=== PATIENT | female | born 2000 | race Caucasian/White ===

== ENCOUNTER → 2019-10-26 | Outpatient (CLI) | payer BC ==
--- NOTE | 2019-10-26 16:56 | XR ---
EXAMINATION TYPE: XR chest 2V DATE OF EXAM: 10/26/2019 COMPARISON: NONE HISTORY: Pneumonia, cough TECHNIQUE: Frontal and lateral views of the chest are obtained. FINDINGS: There is no focal air space opacity, pleural effusion, or pneumothorax seen. The cardiac silhouette size is within normal limits. The osseous structures are intact. IMPRESSION: No acute cardiopulmonary process.
== END | disposition home or self-care (01) ==
LOC: RAD 16:05
PROVIDERS: ATTEND Family Medicine
DX: J18.9 Pneumonia, unspecified organism (principal)
CPT/HCPCS: 71046

== ENCOUNTER → 2021-07-31 | Outpatient (CLI) | payer BC ==
[2021-07-31 16:05] LABS: Basophils # (A) 0.01 X 10*3/uL (0.00-0.10); Basophils % (A) 0.3 %; Eosinophils # (A) 0.05 X 10*3/uL (0.04-0.35); Eosinophils % (A) 1.7 %; HCT 39.1 % (37.2-46.3); HGB 12.8 g/dL (12.0-15.0); Lymphocytes # (A) 0.72 X 10*3/uL (0.90-5.00); Lymphocytes % (A) 23.9 %; MCH 29.7 pg (27.0-32.0); MCHC 32.7 g/dL (32.0-37.0); MCV 90.7 fL (80.0-97.0); Monocytes # (A) 0.31 X 10*3/uL (0.20-1.00); Monocytes % (A) 10.3 %; Neutrophils # (A) 1.91 X 10*3/uL (1.80-7.70); Neutrophils % (A) 63.5 %; Platelet Count 148 X 10*3/uL (140-440); RBC 4.31 X 10*6/uL (4.10-5.20); RDW 12.3 % (11.5-14.5); WBC 3.01 X 10*3/uL (4.50-10.00)
[2021-07-31 17:06] LABS: ALT 9 U/L (8-44); AST 11 U/L (13-35); Albumin 4.6 g/dL (3.8-4.9); Albumin/Globulin Ratio 2.09 (1.60-3.17); Alkaline Phosphatase 58 U/L (41-126); Blood Urea Nitrogen 9.3 mg/dL (9.0-27.0); Calcium 8.9 mg/dL (8.7-10.3); Carbon Dioxide 20.1 mmol/L (21.6-31.8); Chloride 107 mmol/L (96-109); Globulin 2.2 g/dL (1.6-3.3); Glucose 105 mg/dL (70-110); Non-African American GFR(CKD) 129.4 (60.0-200.0); Sodium 141 mmol/L (135-145); Total Protein 6.8 g/dL (6.2-8.2)
== END | disposition home or self-care (01) ==
LOC: LABWHC1 07:26
PROVIDERS: ATTEND Nurse Practitioner Primary Care
DX: R42 Dizziness and giddiness (principal)
CPT/HCPCS: 36415; 80053; 82607; 82746; 83036; 84443; 85025; 85379

== ENCOUNTER → 2021-08-09 | Outpatient (CLI) | payer BC ==
[2021-08-09 11:32] LABS: Basophils # (A) 0.01 X 10*3/uL (0.00-0.10); Basophils % (A) 0.3 %; Eosinophils # (A) 0.03 X 10*3/uL (0.04-0.35); Eosinophils % (A) 0.8 %; HCT 38.6 % (37.2-46.3); HGB 12.4 g/dL (12.0-15.0); Lymphocytes # (A) 0.83 X 10*3/uL (0.90-5.00); Lymphocytes % (A) 23.3 %; MCH 28.7 pg (27.0-32.0); MCHC 32.1 g/dL (32.0-37.0); MCV 89.4 fL (80.0-97.0); Mean Platelet Volume 12.2 fL (9.5-12.2); Monocytes % (A) 11.2 %; Neutrophils # (A) 2.28 X 10*3/uL (1.80-7.70); Neutrophils % (A) 64.1 %; Platelet Count 161 X 10*3/uL (140-440); RBC 4.32 X 10*6/uL (4.10-5.20); RDW 12.1 % (11.5-14.5); WBC 3.56 X 10*3/uL (4.50-10.00)
[2021-08-09 12:27] LABS: Albumin 4.5 g/dL (3.8-4.9); Albumin/Globulin Ratio 2.08 (1.60-3.17); Anion Gap 10.5 mmol/L (4.00-12.00); Blood Urea Nitrogen 8.7 mg/dL (9.0-27.0); Calcium 9.1 mg/dL (8.7-10.3); Carbon Dioxide 22.8 mmol/L (21.6-31.8); Globulin 2.2 g/dL (1.6-3.3); Non-African American GFR(CKD) 133.7 (60.0-200.0); Potassium 4.2 mmol/L (3.5-5.5); Total Bilirubin 0.4 mg/dL (0.30-1.20); Total Protein 6.6 g/dL (6.2-8.2)
== END | disposition home or self-care (01) ==
LOC: LABWHC1 08:39
PROVIDERS: ATTEND Nurse Practitioner Primary Care
DX: R42 Dizziness and giddiness (principal)
CPT/HCPCS: 36415; 80053; 82607; 83036; 84443; 85025; 85379

== ENCOUNTER 2022-07-07 09:41 | Emergency (ER) | payer BC ==
[2022-07-07 09:47] VITALS: RESP 18
[2022-07-07] MEDS ORDERED: ONDANSETRON 4 MG/2 ML VIAL IVP STA (10:07)
[2022-07-07] MEDS ORDERED: FAMOTIDINE 20 MG/2 ML VIAL IV STA (10:07)
[2022-07-07] MEDS ORDERED: SODIUM CHLORIDE 0.9% 1,000 ML IV STA (10:07)
--- NOTE | 2022-07-07 10:09 | ED ---
General Adult HPI - General Chief complaint: Nausea/Vomiting/Diarrhea Stated complaint: 5 wks preg, vomiting Time Seen by Provider: 07/07/22 09:49 Source: patient, RN notes reviewed Mode of arrival: ambulatory Limitations: no limitations - History of Present Illness Initial comments: Patient is a pleasant 22-year-old female presenting to the emergency department with nausea and vomiting. Patient believes she is a proximally 5 or 6 weeks gravid. Patient has had nausea for the past 2 weeks. Patient is vomiting up to 4 times per day, throughout the day. Patient still feels somewhat nauseated at this time. Decreased oral intake recently. No abdominal or pelvic pain. No vaginal bleeding. This would be the patient's first . - Related Data Previous Rx's Medication Instructions Recorded Ondansetron Odt [Zofran Odt] 4 mg PO Q8HR PRN #10 tab 07/07/22 Allergies Allergy/AdvReac Type Severity Reaction Status Date / Time No Known Allergies Allergy Verified 07/07/22 11:36 Review of Systems ROS Statement: Those systems with pertinent positive or pertinent negative responses have been documented in the HPI. ROS Other: All systems not noted in ROS Statement are negative. Constitutional: Denies: fever Eyes: Denies: eye pain ENT: Denies: ear pain Respiratory: Denies: cough Cardiovascular: Denies: chest pain Endocrine: Denies: fatigue Gastrointestinal: Reports: as per HPI, nausea, vomiting Genitourinary: Denies: dysuria Musculoskeletal: Denies: back pain Skin: Denies: rash Neurological: Denies: weakness Past Medical History Past Medical History: No Reported History History of Any Multi-Drug Resistant Organisms: None Reported Past Surgical History: No Surgical Hx Reported Past Psychological History: No Psychological Hx Reported Smoking Status: Never smoker Past Alcohol Use History: Occasional Past Drug Use History: None Reported General Exam Limitations: no limitations General appearance: alert, in no apparent distress Head exam: Present: normocephalic Eye exam: Present: normal appearance Neck exam: Present: normal inspection Respiratory exam: Present: normal lung sounds bilaterally Cardiovascular Exam: Present: regular rate, normal rhythm GI/Abdominal exam: Present: soft. Absent: distended, tenderness Extremities exam: Present: normal inspection Neurological exam: Present: alert Psychiatric exam: Present: normal affect, normal mood Skin exam: Present: normal color Course Vital Signs 07/07/22 07/07/22 09:44 12:03 Temperature 98.2 F 97.8 F Pulse Rate 113 H 76 Respiratory 18 18 Rate Blood Pressure 108/70 112/71 O2 Sat by Pulse 99 100 Oximetry Medical Decision Making - Medical Decision Making Patient reevaluated and feeling much better. Patient updated on results and need for follow-up. - Lab Data Result diagrams: 07/07/22 10:21 07/07/22 10:21 Lab Results 07/07/22 07/07/22 07/07/22 Range/Units 10:21 10:21 10:21 WBC 7.2 (3.8-10.6) k/uL RBC 5.03 (3.80-5.40) m/uL Hgb 14.8 (11.4-16.0) gm/dL Hct 43.0 (34.0-46.0) % MCV 85.5 (80.0-100.0) fL MCH 29.4 (25.0-35.0) pg MCHC 34.3 (31.0-37.0) g/dL RDW 12.4 (11.5-15.5) % Plt Count 177 (150-450) k/uL MPV 9.2 Neutrophils % 84 % Lymphocytes % 8 % Monocytes % 5 % Eosinophils % 1 % Basophils % 0 % Neutrophils # 6.1 (1.3-7.7) k/uL Lymphocytes # 0.6 L (1.0-4.8) k/uL Monocytes # 0.4 (0-1.0) k/uL Eosinophils # 0.1 (0-0.7) k/uL Basophils # 0.0 (0-0.2) k/uL Sodium 138 (137-145) mmol/L Potassium 3.6 (3.5-5.1) mmol/L Chloride 97 L (98-107) mmol/L Carbon Dioxide 25 (22-30) mmol/L Anion Gap 16 mmol/L BUN 11 (7-17) mg/dL Creatinine 0.58 (0.52-1.04) mg/dL Est GFR (CKD-EPI)AfAm >90 (>60 ml/min/1.73 sqM) Est GFR (CKD-EPI)NonAf >90 (>60 ml/min/1.73 sqM) Glucose 101 H (74-99) mg/dL Calcium 9.3 (8.4-10.2) mg/dL Total Bilirubin 0.9 (0.2-1.3) mg/dL AST 19 (14-36) U/L ALT 19 (4-34) U/L Alkaline Phosphatase 61 (38-126) U/L Total Protein 7.6 (6.3-8.2) g/dL Albumin 4.9 (3.5-5.0) g/dL Amylase 56 (30-110) U/L Lipase 45 (23-300) U/L HCG, Quant 52683.3 mIU/mL Urine Color Yellow Urine Appearance Clear (Clear) Urine pH 5.5 (5.0-8.0) Ur Specific [place] 1.036 H (1.001-1.035) Urine Protein 1+ H (Negative) Urine Glucose (UA) Negative (Negative) Urine Ketones 4+ H (Negative) Urine Blood Negative (Negative) Urine Nitrite Negative (Negative) Urine Bilirubin 1+ H (Negative) Urine Urobilinogen 3.0 (<2.0) mg/dL Ur Leukocyte Esterase Negative (Negative) Urine RBC 1 (0-5) /hpf Urine WBC 4 (0-5) /hpf Ur Squamous Epith Cells 2 (0-4) /hpf Urine Bacteria Occasional H (None) /hpf Urine Mucus Moderate H (None) /hpf Disposition Clinical Impression: Hyperemesis gravidarum Disposition: HOME SELF-CARE Condition: Stable Instructions (If sedation given, give patient instructions): Hyperemesis Gravidarum (ED) Additional Instructions: Prescription sent to pharmacy. Please do follow-up with primary care physician in the next day or 2 for recheck as well as PROMOTIONAL ADVERTISING ASSISTANT. Return for uncontrolled vomiting, weakness, worsening or change in symptoms, pelvic pain or bleeding, or other concerns Prescriptions: Ondansetron Odt [Zofran Odt] 4 mg PO Q8HR PRN #10 tab PRN Reason: Nausea Is patient prescribed a controlled substance at d/c from ED?: No Referrals: Paras Burnett DO [Primary Care Provider] - 1-2 days Marcella Jones MD [STAFF PHYSICIAN] - 1-2 days Time of Disposition: 12:19
[2022-07-07 10:44] LABS: Appearance,Urine Clear (Clear); Bacteria,Urine Occasional /hpf; Bilirubin,Urine 1+ (Negative); Blood,Urine Negative (Negative); Color,Urine Yellow; Glucose,Urine (UA) Negative (Negative); Ketones,Urine 4+ (Negative); Leukocyte Esterase,Urine Negative (Negative); Mucus,Urine Moderate /hpf; Nitrite,Urine Negative (Negative); PH, Urine 5.5 (5.0-8.0); Protein,Urine 1+ (Negative); RBC,Urine 1 /hpf (0-5); Specific Gravity,Urine 1.036 (1.001-1.035); Squamous Epithelial Cell,Urine 2 /hpf (0-4); WBC,Urine 4 /hpf (0-5)
[2022-07-07 10:46] LABS: Basophils % (A) 0 %; Eosinophils # (A) 0.1 k/uL (0-0.7); Eosinophils % (A) 1 %; HGB 14.8 gm/dL (11.4-16.0); Lymphocytes # (A) 0.6 k/uL (1.0-4.8); Lymphocytes % (A) 8 %; MCH 29.4 pg (25.0-35.0); MCHC 34.3 g/dL (31.0-37.0); MCV 85.5 fL (80.0-100.0); Mean Platelet Volume 9.2; Monocytes # (A) 0.4 k/uL (0-1.0); Monocytes % (A) 5 %; Neutrophils # (A) 6.1 k/uL (1.3-7.7); Neutrophils % (A) 84 %; Platelet Count 177 k/uL (150-450); RBC 5.03 m/uL (3.80-5.40); RDW 12.4 % (11.5-15.5); WBC 7.2 k/uL (3.8-10.6)
[2022-07-07 11:13] LABS: ALT 19 U/L (4-34); AST 19 U/L (14-36); African American GFR (CKD) >90 (>60 ml/min/1.73 sqM); Albumin 4.9 g/dL (3.5-5.0); Alkaline Phosphatase 61 U/L (38-126); Amylase 56 U/L (30-110); Anion Gap 16 mmol/L; Blood Urea Nitrogen 11 mg/dL (7-17); Calcium 9.3 mg/dL (8.4-10.2); Carbon Dioxide 25 mmol/L (22-30); Chloride 97 mmol/L (98-107); Glucose 101 mg/dL (74-99); Lipase 45 U/L (23-300); Non-African American GFR(CKD) >90 (>60 ml/min/1.73 sqM); Potassium 3.6 mmol/L (3.5-5.1); Sodium 138 mmol/L (137-145); Total Bilirubin 0.9 mg/dL (0.2-1.3); Total Protein 7.6 g/dL (6.3-8.2)
[2022-07-07 11:54] LABS: HCG,Quantitative Serum 73303.3 mIU/mL
[2022-07-07 12:04] VITALS: BP 112/71; PULSE 76; TEMP 97.8
== END 2022-07-07 12:31 | disposition home or self-care (01) ==
LOC: EC 09:41
DX: O21.0 Mild hyperemesis gravidarum (principal); Z3A.01 Less than 8 weeks gestation of pregnancy
CPT/HCPCS: 36415; 80053; 82150; 83690; 85025; 81001; 84702; 99284; 96374; 96375; 96361; J2405

== ENCOUNTER 2023-02-18 18:10 | Outpatient (CLI) | payer BC ==
[2023-02-18 21:10] VITALS: BP 120/72; PULSE 106; RESP 16; TEMP 98.8
--- NOTE | 2023-04-01 10:45 | P.MSEPDOC ---
Presenting Problems - Arrival Data Date of Arrival on Unit: 02/18/23 Time of Arrival on Unit: 18:10 Mode of Transport: Ambulatory - Complaint OB-Reason for Admission/Chief Complaint: Possible Onset of Labor Comment: pt arrived c/o cramping since last night pt stats she is unable to time them. pt denies any leaking of fluid or any bleeding. pt also denies any problems with the. Medical History - Information : 1 Para: 0 Term: 0 : 0 Abortions: Spontaneous or Elective: 0 Number of Living Children: 0 - Gestational Age Gestational Age by CAT (wks/days): 38 Weeks and 1 Days Review of Systems - Review of Systems Constitutional: No problems Breast: No problems ENT: No problems Cardiovascular: No problems Respiratory: No problems Gastrointestinal: No problems Genitourinary: No problems Musculoskeletal: No problems Neurological: No problems Skin: No problems Vital Signs - Temperature Temperature: 98.8 F Temperature Source: Oral - Pulse Pulse Oximetery Pulse Rate: 106 Pulse Assessment Method: Pulse Oximetry - Respirations Respiratory Rate: 16 Oxygen Delivery Method: Room Air O2 Sat by Pulse Oximetry: 96 - Blood Pressure Right Arm Blood Pressure: 120/72 Blood Pressure Mean: 88 Blood Pressure Source: Automatic Cuff Medical Screen Scoring - Cervical Exam Dilation (cm): 1 Effacement (%): 70 Station: -2 Membranes: Intact - Uterine Contractions Frequency From (mins): 4 Frequency To (mins): 10 Duration From (seconds): 40 Duration To (seconds): 60 Intensity: Mild Resting: Soft to palpation - Assessment - Baby A Baseline FHR: 120 Heart Rate - NICHD Category: Category I (Normal) NST: Reactive Physician Notification - Physician Notified Physician Notified Date: 02/18/23 Physician Notified Time: 19:45 Physician: Kip Ventura New Order Received: No - Notification Comment Comment: Dr. Ventura updated by previous RN on patients primary complaint of cramping that. brought her into triage. Patients cervical exam remains unchanged after 1 hour. Patient. approved for discharge home. Maternal Triage Index - Stat/Priority 1 Stat Priority 1: No - Urgent/Priority 2 Urgent Priority 2: No - Prompt/Priority 3 Prompt Priority 3: No - Non-Urgent/Priority 4 Non-Urgent Priority 4: Yes Criteria Met for Priority 4: 38 1/7 cramping Disposition - Disposition OB Disposition: Discharge to home Discharge Date: 02/18/23 Discharge Time: 19:45 I agree with the RN Medical Screening Exam: Yes Physician's MSE Comment: I have neither seen nor examined the patient. Case reviewed; plan agreed upon as documented in EMR&OBIX.: Yes Diagnosis: RELATED CONDITIONS, UNSPECIFIED, THIRD TRIMESTER
== END 2023-02-18 19:45 ==
LOC: FBPOP 18:10
PROVIDERS: ATTEND Obstetrics & Gynecology
DX: O26.893 Other specified pregnancy related conditions, third trimester (principal); Z3A.38 38 weeks gestation of pregnancy
CPT/HCPCS: 59025; 99213

== ENCOUNTER 2023-02-19 22:43 | Inpatient (IN) | payer BC ==
[2023-02-19] MEDS ORDERED: LIDOCAINE 0.5% (PF) 5 MG/ML (50 ML SDV) SQ PRN (23:26)
[2023-02-19] MEDS ORDERED: METHYLERGONOVINE 0.2 MG/ML 1 ML AMP IM PRN (23:26)
[2023-02-19] MEDS ORDERED: OXYTOCIN 10 UNIT/ML 1 ML VIAL IM PRN (23:26)
[2023-02-19] MEDS ORDERED: TRANEXAMIC 1,000 MG/100ML-NACL 1,000 MG in EMPTY BAG 1 BAG IV PRN (23:26)
[2023-02-19] MEDS ORDERED: TERBUTALINE 1 MG/ML VIAL SQ PRN (23:26)
[2023-02-19] MEDS ORDERED: CARBOPROST TROMETHAMINE 250 MCG/ML 1 ML AMP IM PRN (23:26)
[2023-02-19] MEDS ORDERED: miSOPROStoL 200 MCG TAB PO PRN (23:26)
[2023-02-20] MEDS ORDERED: fentaNYL (PF) 50 MCG/ML 5 ML AMP ONE (00:01)
[2023-02-20] MEDS ORDERED: SODIUM CHLORIDE 0.9% 100 ML BAG ONE (00:01)
[2023-02-20] MEDS ORDERED: ROPIVACAINE 5 MG/ML 20 ML AMPULE ONE (00:01)
[2023-02-20 00:15] LABS: Basophils % (A) 0 %; Eosinophils % (A) 0 %; HCT 33.8 % (34.0-46.0); HGB 11.1 gm/dL (11.4-16.0); Lymphocytes # (A) 0.7 k/uL (1.0-4.8); Lymphocytes % (A) 3 %; MCH 25.5 pg (25.0-35.0); MCV 77.2 fL (80.0-100.0); Mean Platelet Volume 11.6; Monocytes # (A) 0.9 k/uL (0-1.0); Monocytes % (A) 4 %; Neutrophils # (A) 18.2 k/uL (1.3-7.7); Neutrophils % (A) 91 %; Platelet Count 163 k/uL (150-450); RBC 4.37 m/uL (3.80-5.40); RDW 14.7 % (11.5-15.5)
[2023-02-20] MEDS: LACTATED RINGERS 1,000 ML IV SCH ×4 (00:41→19:08)
[2023-02-20] MEDS ORDERED: OXYTOCIN 30 UNITS/500 ML NS 30 UNIT in SALINE 1 500ML.BAG IV SCH (02:40)
[2023-02-20] MEDS ORDERED: OXYTOCIN 10 UNIT/ML 1 ML VIAL IM PRN (04:36)
[2023-02-20] MEDS ORDERED: miSOPROStoL 200 MCG TAB PO PRN (04:36)
[2023-02-20] MEDS ORDERED: CARBOPROST TROMETHAMINE 250 MCG/ML 1 ML AMP IM PRN (04:36)
[2023-02-20] MEDS ORDERED: TRANEXAMIC 1,000 MG/100ML-NACL 1,000 MG in EMPTY BAG 1 BAG IV PRN (04:36)
[2023-02-20] MEDS ORDERED: CITRIC ACID-SODIUM CITRATE 15 ML CUP PO ONE (04:36)
--- NOTE | 2023-02-20 04:53 | P.HPOB ---
History of Present Illness H&P Date: 02/20/23 Chief Complaint: contractions, leakage of fluid This is a 23-year-old 1 para 0At 38 weeks and 4 days with EDC of 03/03/2023 by LMP consistent with 7 week ultrasound who presents to labor and delivery with regular uterine contractions and leakage of fluid. Spontaneous rupture of membranes was confirmed with amnio sure. Upon arrival the patient was examined and found to be 7 cm dilated. Therefore the patient will be admitted. Her has been uncomplicated. Maternal serologies: Blood type O-, antibody screen negative, rubella immune, VDRL nonreactive, HBsAg negative, HIV negative, 1 hour GTT 122, GBS negative. The patient received TDap and RhoGAM during the . Past Medical History Past Medical History: No Reported History, GERD/Reflux History of Any Multi-Drug Resistant Organisms: None Reported Past Surgical History: No Surgical Hx Reported Additional Past Surgical History / Comment(s): wisdom teeth Past Anesthesia/Blood Transfusion Reactions: No Reported Reaction Past Psychological History: No Psychological Hx Reported Smoking Status: Never smoker Past Alcohol Use History: Occasional Past Drug Use History: None Reported - Past Family History Mother Family Medical History: Hypertension Medications and Allergies Home Medications Medication Instructions Recorded Confirmed Type Aspirin/Omeprazole 1 each PO DAILY 02/18/23 02/20/23 History [Aspirin-Omeprazole Dr 81-40 mg] Vit No.179/Iron/Folic 1 tab PO DAILY 02/18/23 02/20/23 History [ Tablet] Allergies Allergy/AdvReac Type Severity Reaction Status Date / Time No Known Allergies Allergy Verified 02/19/23 23:01 Exam Vital Signs Temp Pulse Resp BP Pulse Ox 02/20/23 00:42 97.6 F 96 16 130/66 99 02/19/23 23:30 97.6 F 96 16 130/66 99 Intake and Output 02/19/23 02/19/23 02/20/23 14:59 22:59 06:59 Other: Weight 73.936 kg Focused physical exam is performed. Patient is coping well with contractions. Cervical exam is 7/90/-2 with grossly ruptured membranes. Extremities are non- tender, non-edematous. heart tones are Category I. Results Result Diagrams: 02/19/23 23:35 Abnormal Lab Results - Last 24 Hours (Table) 02/19/23 Range/Units 23:35 WBC 20.0 H (3.8-10.6) k/uL Hgb 11.1 L (11.4-16.0) gm/dL Hct 33.8 L (34.0-46.0) % MCV 77.2 L (80.0-100.0) fL Neutrophils # 18.2 H (1.3-7.7) k/uL Lymphocytes # 0.7 L (1.0-4.8) k/uL Assessment and Plan Assessment: 23 year old at 38 weeks and 4 days with SROM for clear fluid, in active labor Plan: Admit, epidural prn, NPO, mIVF, expectant management, continuous EFM, close monitoring of patient. Time with Patient: Less than 30 (10 minutes)
[2023-02-20] MEDS ORDERED: fentaNYL (PF) 50 MCG/ML 2 ML AMP ONE (05:12)
[2023-02-20] MEDS ORDERED: METHYLERGONOVINE 0.2 MG/ML 1 ML AMP ONE (05:12)
[2023-02-20] MEDS ORDERED: OXYTOCIN 10 UNIT/ML 1 ML VIAL ONE (05:12)
[2023-02-20] MEDS ORDERED: MORPHINE SULFATE (PF) 0.3 MG/0.3 ML SYR ONE (05:12)
[2023-02-20] MEDS ORDERED: PROPOFOL 10 MG/ML 20 ML VIAL IV ONE (05:12)
[2023-02-20] MEDS ORDERED: OXYTOCIN 30 UNITS/500 ML NS BAG IV ONE (05:12)
[2023-02-20] MEDS ORDERED: KETOROLAC 15 MG/ML 1 ML VIAL ONE (05:12)
[2023-02-20] MEDS ORDERED: HYDROmorphone (PF) 1 MG/ML ONE (05:12)
[2023-02-20] MEDS ORDERED: SUCCINYLCHOLINE CHLORIDE 200 MG/10 ML VIAL IV ONE (05:12)
[2023-02-20] MEDS ORDERED: miSOPROStoL 200 MCG TAB RECTAL STA (06:05)
[2023-02-20] MEDS ORDERED: LANOLIN CREAM 5 GM TUBE TOPICAL PRN (06:50)
[2023-02-20] MEDS ORDERED: ZOLPIDEM 5 MG TAB PO PRN (06:50)
[2023-02-20] MEDS ORDERED: diphenhydrAMINE 50 MG CAP PO PRN (06:50)
[2023-02-20] MEDS ORDERED: diphenhydrAMINE 50 MG/ML 1 ML VIAL IVP PRN ×2 (06:50)
[2023-02-20] MEDS ORDERED: diphenhydrAMINE 25 MG CAP PO PRN (06:50)
[2023-02-20] MEDS ORDERED: ONDANSETRON 4 MG/2 ML VIAL IVP PRN (06:50)
[2023-02-20] MEDS ORDERED: METOCLOPRAMIDE 5 MG/ML 2 ML VIAL IVP PRN (06:50)
[2023-02-20] MEDS ORDERED: NALOXONE 0.4 MG/ML 1 ML VIAL IV PRN (06:50)
[2023-02-20] MEDS ORDERED: SIMETHICONE 80 MG CHEWABLE PO PRN (06:50)
[2023-02-20] MEDS ORDERED: Rhogam IMMUNE GLOBULIN 1,500 UNIT/1 ML IM ONE (06:50)
--- NOTE | 2023-02-20 07:12 | P.OP ---
Date of Procedure: 02/20/23 Preoperative Diagnosis: 1. Term IUP at 38 weeks and 4 days 2. Arrest of descent Postoperative Diagnosis: 1. Term IUP at 38 weeks and 4 days 2. Arrest of descent 3. Occiput posterior position 4. Uterine atony 5. Hemorrhage 6. Uterine Extension Procedure(s) Performed: Primary Lower Transverse Section Implants: None Anesthesia: GETA, epidural Surgeon: Lu Narayan [facility] Procedural Physician #1: Ann So Estimated Blood Loss (ml): 1,500 IV fluids (ml): 1,000 Urine output (ml): 200 Pathology: none sent Condition: stable Disposition: floor Indications for Procedure: This is a 23-year-old 1 para 0 at 38 weeks and 4 days gestation who presented to labor and delivery in active labor with ruptured membranes. She progressed to complete dilation and was pushing for nearly 3 hours without any descent despite good maternal efforts. section was recommended for maternal and well-being. I discussed with the patient risks, be nefits, and alternatives to section including the risk of infection, bleeding, and damage to surrounding structures including bladder/bowel/ureters. The patient understood these risks and desired to proceed with section. All questions were answered. Operative Findings: Meconium-stained fluid. Occiput posterior position of fetus. Viable male with apgars 7/8, weight 6#8oz. Normal-appearing uterus and bilateral tubes and ovaries. An extension of the left corner of the hysterectomy was noted down into the broad ligament. The uterus was also found to be boggy and atonic. Description of Procedure: The patient was taken to the operating room where spinal anesthesia was found to be adequate. 2 grams of Ancef were given for infection prophylaxis. She was prepared vaginally and abdominally. She was draped in the dorsal supine position with a leftward tilt. A Pfannenstiel skin incision was made with the scalpel. The incision was carried down to the fascia. The fascia was incised and extended laterally with Kaba scissors. The superior aspect of the fascia was grasped with Belkis clamps. The underlying rectus muscle was dissected off sharply with Kaba scissors. In a similar fashion, the inferior aspect of the fascia was elevated with Belkis clamps and the rectus muscle and pyramidalis were dissected off. Ex cellent hemostasis was achieved with the bovie. The rectus muscle was in the midline down to the level of the pubic symphysis. Pre-peritoneal fatty tissue was bluntly dissected to expose the peritoneum. The peritoneum was found to be free of adherent bowel and entered sharply with Kaba scissors. The peritoneal incision was extended superiorly and inferiorly to the bladder reflection with good visualization of the bladder. The bladder blade was inserted and vesicouterine peritoneum was identified. Intraabdominal survey revealed scant, clear peritoneal fluid and the thinned-out lower uterine segment. The vesicouterine peritoneum was opened with scissors and the bladder flap was developed. The bladder blade was repositioned to keep the bladder out of the operative field. The lower uterine segment was incised with a scalpel, meconium stained fluid was noted. The uterine incision was extended bluntly with lateral and upward traction. The fetus was in occiput posterior position. The head was elevated out of the pelvis with special attention paid to avoid using the uterine incision as a fulcrum. Gentle fundal pressure was applied once the head was brought into the incision. The was delivered with no difficulty. The mouth and nose were suctioned with a bulb. The cord was clamped and cut. The infant was handed off to the route sales delivery driver. IV oxytocin was initiated to facili aceves uterine contractions. The placenta was delivered intact with manual massage of uterine fundus. The uterus was then exteriorized and the inside of the uterus was gently wiped with a lap sponge to assure complete removal of placental membranes. The Uterine incision was noted to have an extension of the left corner down into the broad ligament deep within the pelvis. 0-Polysorb suture was used to close this extension in a running locked fashion. The uterine incision was closed with a 0-Polysorb suture in a running locked fashion. A second imbricating layer with 0-Polysorb was used to facilitate hemostasis. The uterus was noted to be atonic. The decision was made to give 5mU of IV oxytocin, 0.2 of IM Methergine. The uterus continued to be atonic after administration of these medications, however, there was not bleeding in the abdomen or vaginally. The decision was made to complete the case and place a Naty device with 1,000mg of rectal cytotec after the case as bleeding prophylaxis given the bogginess of the uterus. The ovaries and tubes were found to be normal. The uterus, tubes, and ovaries were then gently returned to the abdominal cavity. The blood clots and fluid were wiped out of the abdomen and pelvis with moist laparotomy sponges. The uterine incision was reinspected and excellent hemostasis was noted. The bladder flap was closed with 2-0 Vicryl in a running fashion. The fascial layer was closed with a 0-Vicryl suture. The subcutaneous layer was closed with 2-0 Plain Gut. The skin was closed with 4-0 Monocryl in a subcuticular fashion. The patient tolerated the procedure well. All the counts were correct times two. The 1,000mg of rectal cytotec was placed. The uterus was massaged. Naty device was placed without difficulty, with 120cc of normal saline inserted into the balloon. The patient was taken to the recovery room in a stable condition.
[2023-02-20] MEDS: SENNOSIDES-DOCUSATE SODIUM 1 EACH TAB PO SCH ×2 (07:35→20:46)
[2023-02-20] MEDS: KETOROLAC 15 MG/ML 1 ML VIAL IVP SCH ×3 (08:35→18:04)
[2023-02-20] MEDS ORDERED: ACETAMINOPHEN IV (For NPO) 1,000 MG in EMPTY BAG 1 BAG IVPB STA (08:50)
[2023-02-20] MEDS: ACETAMINOPHEN TAB 500 MG TAB PO SCH ×3 (11:21→20:46)
[2023-02-20 12:17] LABS: Basophils % (A) 0 %; Eosinophils # (A) 0.1 k/uL (0-0.7); Eosinophils % (A) 1 %; HCT 26.1 % (34.0-46.0); HGB 8.7 gm/dL (11.4-16.0); Lymphocytes # (A) 0.7 k/uL (1.0-4.8); Lymphocytes % (A) 5 %; MCH 25.5 pg (25.0-35.0); MCHC 33.2 g/dL (31.0-37.0); MCV 76.7 fL (80.0-100.0); Mean Platelet Volume 12.1; Monocytes # (A) 1.1 k/uL (0-1.0); Monocytes % (A) 7 %; Neutrophils # (A) 13.6 k/uL (1.3-7.7); Neutrophils % (A) 86 %; Platelet Count 119 k/uL (150-450); RDW 14.7 % (11.5-15.5); WBC 15.7 k/uL (3.8-10.6)
[2023-02-21] MEDS: KETOROLAC 15 MG/ML 1 ML VIAL IVP SCH ×2 (00:19→05:58)
[2023-02-21] MEDS: ACETAMINOPHEN TAB 500 MG TAB PO SCH ×3 (03:34→18:52)
[2023-02-21 06:09] LABS: Basophils % (A) 0 %; Eosinophils % (A) 0 %; HCT 22.9 % (34.0-46.0); HGB 7.3 gm/dL (11.4-16.0); Hypochromasia Slight; Lymphocytes # (A) 0.8 k/uL (1.0-4.8); Lymphocytes % (A) 9 %; MCH 25.3 pg (25.0-35.0); Mean Platelet Volume 11.2; Monocytes # (A) 0.7 k/uL (0-1.0); Monocytes % (A) 8 %; Neutrophils # (A) 6.7 k/uL (1.3-7.7); Neutrophils % (A) 79 %; RDW 15.1 % (11.5-15.5); WBC 8.4 k/uL (3.8-10.6)
[2023-02-21 06:17] LABS: Platelet Count 95 k/uL (150-450)
--- NOTE | 2023-02-21 07:47 | P.PN ---
Progress Note - Text Progress Note Date: 02/21/23 (07) Anesthesia Postop day 1 Subjective: Status Post section with Duramorph. Patient seen and examined. Doing well without complaint. VAS 1 out of 10. No nausea vomiting or pruritus. Afebrile. Gross lower extremity strength intact. Without apparent anesthetic complications. Objective: Vital signs reviewed Heart: Regular Rate Lungs: Good chest excursion Abdomen: Appears nondistended Assessment: Status post with Duramorph postop day 1 Plan: Continue current care with your medical management. Anticipated and the Duramorph section around time today. You may see increased pain needs around this time.
[2023-02-21] MEDS: SENNOSIDES-DOCUSATE SODIUM 1 EACH TAB PO SCH ×2 (08:32→20:28)
[2023-02-21] MEDS ORDERED: IBUPROFEN 600 MG TAB PO PRN (09:15)
--- NOTE | 2023-02-21 09:15 | P.PNOBGPC ---
Subjective - Subjective Principal diagnosis: s/p primary lower transverse section Interval history: The patient is doing well this morning and had no acute events overnight. She has no complaints this morning. 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 She is breast-feeding her without difficulty. She denies chest pain, shortness of breathing, fevers, or chills overnight. She denies pain or swelling in the legs. The patient denies lightheadedness or dizziness with ambulation. Patient reports: Reports appetite normal, Reports voiding normally, Reports pain well controlled, Reports ambulating normally Ulen: doing well Objective - Vital Signs Latest vital signs: Vital Signs Temp Pulse Resp BP Pulse Ox 02/21/23 08:00 98.3 F 69 18 105/67 97 02/21/23 04:00 98.2 F 91 18 109/74 02/21/23 00:00 98.1 F 84 18 113/76 99 02/20/23 20:00 98.3 F 92 18 115/71 97 02/20/23 16:00 99.5 F 82 18 109/71 97 02/20/23 11:55 98.6 F 104 H 18 116/71 97 Intake and Output 02/20/23 02/21/23 02/21/23 22:59 06:59 14:59 Intake Total 300 Output Total 250 Balance 50 Intake: Oral 300 Output: Urine 250 Other: # Voids 1 1 1 - Exam Extremities: Present: normal Abdomen: Present: normal appearance, soft Incision: Present: normal, dry, intact Uterus: Present: normal, firm - Labs Labs: Abnormal Lab Results - Last 24 Hours (Table) 02/20/23 02/21/23 Range/Units 12:01 05:15 WBC 15.7 H (3.8-10.6) k/uL RBC 3.40 L 2.90 L (3.80-5.40) m/uL Hgb 8.7 L D 7.3 L (11.4-16.0) gm/dL Hct 26.1 L 22.9 L (34.0-46.0) % MCV 76.7 L 79.0 L (80.0-100.0) fL Plt Count 119 L 95 L (150-450) k/uL Neutrophils # 13.6 H (1.3-7.7) k/uL Lymphocytes # 0.7 L 0.8 L (1.0-4.8) k/uL Monocytes # 1.1 H (0-1.0) k/uL Assessment and Plan Assessment: 23 year old now POD#1 s/p primary LTCS 2/2 arrest of descent, complicated by uterine atony with hemorrhage Plan: 1. Postoperative. Patient meeting all postoperative milestones appropriately. Continue to monitor. 2. Acute blood loss anemia. Hgb 7.3 this morning, down from 11 pre-operatively. Vital signs have been stable. Patient is asymptomatic. Will continue to monitor. PO ferrous sulfate. Repeat CBC tomorrow. 3. hemorrhage 2/2 uterine atony. s/p several intraoperative uterotonics and s/p zulema device. Fundus firm, bleeding now wnl. 4. Viable male infant. At bedside. Not nursing well yet, for this reason will hold off on circumcision until tomorrow. Dispo: Likely discharge home tomorrow. Circumcision tomorrow.
[2023-02-21] MEDS: FERROUS SULFATE 325 MG TAB PO SCH (11:12)
[2023-02-22] MEDS: ACETAMINOPHEN TAB 500 MG TAB PO SCH ×2 (00:06→05:02)
[2023-02-22 07:24] LABS: Basophils % (A) 0 %; Eosinophils % (A) 1 %; HCT 22.3 % (34.0-46.0); Hypochromasia Slight; Lymphocytes # (A) 0.7 k/uL (1.0-4.8); Lymphocytes % (A) 11 %; MCH 24.9 pg (25.0-35.0); MCHC 31.5 g/dL (31.0-37.0); MCV 79.1 fL (80.0-100.0); Mean Platelet Volume 9.5; Monocytes # (A) 0.4 k/uL (0-1.0); Monocytes % (A) 6 %; Neutrophils # (A) 5.2 k/uL (1.3-7.7); Neutrophils % (A) 80 %; RBC 2.82 m/uL (3.80-5.40); RDW 15.2 % (11.5-15.5); WBC 6.5 k/uL (3.8-10.6)
[2023-02-22 07:36] LABS: Platelet Count 89 k/uL (150-450)
[2023-02-22] MEDS: FERROUS SULFATE 325 MG TAB PO SCH (08:31)
[2023-02-22] MEDS: SENNOSIDES-DOCUSATE SODIUM 1 EACH TAB PO SCH (08:32)
[2023-02-22 09:03] VITALS: RESP 20
--- NOTE | 2023-02-22 12:16 | P.DS ---
Providers Date of admission: 02/19/23 23:16 Expected date of discharge: 02/22/23 Attending physician: Alina Nichols Primary care physician: Stated None - Discharge Diagnosis(es) (1) Term Current Visit: Yes Status: Acute (2) SROM (spontaneous rupture of membranes) Current Visit: Yes Status: Acute (3) Arrest of descent, delivered, current hospitalization Current Visit: Yes Status: Acute (4) Status post delivery Current Visit: Yes Status: Acute Hospital Course: This 23-year-old at 38-4/7 weeks that presented to labor and delivery on with complaints of spontaneous rupture of membranes. Patient had been lorin to the day and through the night noted rupture of membranes. Patient noted the fluid to be cleared in nature. Patient was 7 cm on presentation. Patient had been receiving routine care which has been essentially uncomplicated. Patient did have a blood type of O-. Patient was admitted and did receive epidural for analgesia. Patient progressed to complete and began pushing. After proximally 2+ hours of pushing no descent was appreciated therefore the decision was made to proceed with primary low transverse section. was performed without difficulty with a uterine extension into the broad ligament being noted. Patient has done well . Acute blood loss anemia is noted. Patient has been taking her vitamin in addition to iron daily. On this postoperative day #2 she is ambulating and voiding without difficulty. She denies any concerns she denies shortness of breath dizziness or feeling lightheaded with ambulation. She is tolerating a regular diet without nausea or vomiting. She would like discharge home later stay. Patient Condition at Discharge: Good Plan - Discharge Summary New Discharge Prescriptions: No Action Aspirin/Omeprazole [Aspirin-Omeprazole Dr 81-40 mg] 1 each PO DAILY Vit No.179/Iron/Folic [ Tablet] 1 tab PO DAILY Discharge Medication List Aspirin/Omeprazole [Aspirin-Omeprazole Dr 81-40 mg] 1 each PO DAILY 02/18/23 [History] Vit No.179/Iron/Folic [ Tablet] 1 tab PO DAILY 02/18/23 [History] Follow up Appointment(s)/Referral(s): Alina Nichols DO [Doctor of Osteopathic Medicine] - 2 Weeks Patient Instructions/Handouts: (DC), (GEN) Activity/Diet/Wound Care/Special Instructions: No tub baths or intercourse until 6 weeks . Routine incision check at 2 weeks . [id number] ibuprofen and Tylenol as needed for pain. Bleeding precautions reviewed . All questions are answered. Patient is to call the office if she has any concerns prior to her routine postoperative check at 2 weeks.
[2023-02-22 14:26] VITALS: PULSE 103
[2023-02-22 15:30] VITALS: BP 122/66; TEMP 99.4
== END 2023-02-22 15:45 | disposition home or self-care (01) | DRG 787 ==
LOC: FBPOP 22:43 → 4FBP 23:16
PROVIDERS: ADMIT Obstetrics & Gynecology; ATTEND Obstetrics & Gynecology Obstetrics
PROC: 0UQ90ZZ Repair Uterus, Open Approach (ICD-10-PCS; principal; 2023-02-20 05:10)
PROC: 3E0234Z Introduction of Serum, Toxoid and Vaccine into Muscle, Percutaneous Approach (ICD-10-PCS; principal; 2023-02-20 05:10)
PROC: 0W3R7ZZ Control Bleeding in Genitourinary Tract, Via Natural or Artificial Opening (ICD-10-PCS; principal; 2023-02-20 05:10)
PROC: 10D00Z1 Extraction of Products of Conception, Low, Open Approach (ICD-10-PCS; principal; 2023-02-20 05:10)
DX: O99.62 Diseases of the digestive system complicating childbirth (principal); D62 Acute posthemorrhagic anemia; O72.1 Other immediate postpartum hemorrhage; O26.893 Other specified pregnancy related conditions, third trimester; O62.1 Secondary uterine inertia; O99.03 Anemia complicating the puerperium; O64.0XX0 Obstructed labor due to incomplete rotation of fetal head, not applicable or unspecified; O77.0 Labor and delivery complicated by meconium in amniotic fluid; O71.81 Laceration of uterus, not elsewhere classified; Z67.41 Type O blood, Rh negative; K21.9 Gastro-esophageal reflux disease without esophagitis; Z28.310 Unvaccinated for COVID-19; Z79.82 Long term (current) use of aspirin; Z3A.38 38 weeks gestation of pregnancy; Z37.0 Single live birth
CPT/HCPCS: 59025; 84112; 85025; 85461; 86850; 86900; 86901; 99213